=== PATIENT | female | born 1960 | race Caucasian/White ===

== ENCOUNTER 2016-10-18 10:25 | Emergency (ER) | payer BC ==
--- NOTE | 2016-11-05 08:09 | ER ---
ADMIT: 10/18/2016 RM/LOC: ER [facility] MR#: [id number] [address] [facility] [address] [place] [id number] [address] [place] [address] Emergency Room Report SEX: F AGE: 56 : 1960 DATE: 10/18/2016 ADDENDUM: This 56-year-old white female coming in with left arm numbness, she has had it for 2 weeks. Once in a while she gets nauseated. She has no exertional chest pain. She says she has been getting just a little bit of shortness of breath, but no chest pain. Exam essentially negative. She does have chest x-ray that is negative. CBC, chemistry are negative though her BNP is up about 297. CT of her head and neck were done. The head is negative, however, she has some stenosis around 4, 5, 6 that could be causing some of her problems. This would go along with her symptoms. Her troponin is fine as well as the rest of her EKG and lab. There is questionable where the elevated BNP is coming from. At this time, I do not believe that she has any coronary event. I spoke with Dr. Gomez and then she will see her this week. We are going to put her on some steroids, I did give her Decadron 20 IV and then prednisone b.i.d. x4 days, starting tomorrow. We will see if that will help, maybe some of her cervical irritation. Overall, kind of complex case, but she will be followed up this week by Dr. Gomez. CONDITION ON DISCHARGE: Serious but stable. Malik Keenan MD/ lisa JOB #: [id number] CC: Malik Keenan MD, Attending Physician
== END 2016-10-18 13:22 | disposition home or self-care (01) ==
LOC: ER 10:25
DX: R07.89 Other chest pain (principal); R06.02 Shortness of breath; M54.12 Radiculopathy, cervical region; I10 Essential (primary) hypertension; J45.909 Unspecified asthma, uncomplicated; Z90.49 Acquired absence of other specified parts of digestive tract; Z98.890 Other specified postprocedural states; Z79.899 Other long term (current) drug therapy

== ENCOUNTER → 2016-10-25 | Outpatient (CLI) | payer BC | END | disposition home or self-care (01) | LOC: RAD.S 08:01 | DX: Z12.31 Encounter for screening mammogram for malignant neoplasm of breast (principal); N63 Unspecified lump in breast ==